=== PATIENT | male | born 1985 | race Caucasian/White ===

== ENCOUNTER 2017-09-08 19:49 | Emergency (ER) | payer BC ==
[2017-09-08 20:23] VITALS: BP 147/101
--- NOTE | 2017-09-08 20:40 | UC ---
Complaint Male HPI - HPI Summary HPI Summary: 32 year old male with complaint. started yesterday with pain behind the testicle in the middle of the night. again today he woke up early in the morning to pee and had pain in the back of the testicle. he does not think there is any swelling or redness. he did have sex last, he did not have pain with sex or with ejaculation. he denies drainage from the penis. it does not hurt when he goes pee, but the pain makes him feel like he has to pee more often. In general, patient does not experience frequent urination, or decrease in flow of urine. no fever. not a pain but more of a discomfort. no pain with sitting. no back pain. no dysuria . over the pat 2 weeks went to PCP and started on crestor and stopped sugar drinks. [ End ] - History of Current Complaint Chief Complaint: UCGU Stated Complaint: FREQUENT URINATION Time Seen by Provider: 09/08/17 20:31 Hx Obtained From: Patient Onset/Duration: Gradual Onset Pain Intensity: 5 - Allergies/Home Medications Allergies/Adverse Reactions: Allergies Allergy/AdvReac Type Severity Reaction Status Date / Time No Known Allergies Allergy Verified 09/08/17 20:24 Home Medications: Home Medications Rosuvastatin Calcium [Crestor] 20 mg PO DAILY 09/08/17 [History Confirmed ] Stomach Acid Pill 1 dose PO DAILY 09/08/17 [History Confirmed 09/08/17] PMH/Surg Hx/FS Hx/Imm Hx - Surgical History Surgical History: Yes Surgery Procedure, Year, and Place: about age 6 repair of undescended testicle - Family History Known Family History: Positive: None - Social History Alcohol Use: Occasionally Substance Use Type: None Smoking Status (MU): Never Smoked Tobacco Review of Systems Genitourinary: Frequency Is Patient Immunocompromised?: No All Other Systems Reviewed And Are Negative: Yes Physical Exam Triage Information Reviewed: Yes Appearance: Well-Appearing, No Pain Distress, Well-Nourished Vital Signs: Initial Vital Signs Temp 99.5 F 09/08/17 20:13 Pulse 95 09/08/17 20:13 Resp 14 09/08/17 20:13 BP 147/101 09/08/17 20:13 Pulse Ox 98 09/08/17 20:13 Vital Signs Reviewed: Yes Eye Exam: Normal ENT Exam: Normal Dental Exam: Normal Neck exam: Normal Neck: Positive: 1 Respiratory Exam: Normal Cardiovascular Exam: Normal Abdominal Exam: Normal Abdomen Description: Negative: CVA Tenderness (R), CVA Tenderness (L), Distended , Guarding Male Genital Exam: Positive: Normal Genitalia, No Hernia, Epididymal Tenderness - minimal left inferior aspect of testicle, Other - pressed on the perineum and non tender. no erythema. no discharge.. Negative: Erythema, Hernia Mass, Inguinal Tenderness, Lesions, Urethral Discharge Musculoskeletal Exam: Normal Neurological Exam: Normal Psychological Exam: Normal Skin Exam: Normal Complaint Male Course/Dx - Course Course Of Treatment: patient pain resolving and much improved tonght that last night. u/a shows mild amount of blood we discussed DDx of that and he has no back pain, no h/o stones, no new sexual partners, could be from sexual intercourse last night. urination changes could be from stopping soda and increasing water intake . we discussed imaging but no sono here. discussed CT but pain not warrant that exam at this time. no fever. minimal pain to palpation of the inferior aspect testicle but Sx improved today so less likely for any acute concerns. give NSAIDs and doxy and he is well aware if Sx worsen / not improved then go to ED for further eval and he is willing to do that. f/u with PCP for this lui and for hematuria. no S/S of torsion. (+) mild cremasteric response. no inguinal pain / lymphadenpathy. deferred rectal. no obvious prostatitis concerns. in essentially no pain during exam and with conversating with him he showed no signs of discfomfort or pain - Differential Dx/Diagnosis Differential Diagnosis/HQI/PQRI: Epididymitis, Urinary Tract Infection Provider Diagnoses: epididymitis Discharge - Sign-Out/Discharge Documenting (check all that apply): Discharge - Discharge Plan Condition: Good Disposition: HOME Prescriptions: Doxycycline Hyclate 100 mg PO BID #20 tablet Ibuprofen TAB* [Motrin TAB* 600 MG] 600 mg PO Q8H PRN #30 tab PRN Reason: Pain Patient Education Materials: Epididymitis (ED) Referrals: No Primary Care Phys,NOPCP [Primary Care Provider] - 1 Week (for recheck urine and follow up ) - Billing Disposition and Condition Condition: GOOD Disposition: HOME
== END 2017-09-08 20:58 | disposition home or self-care (01) ==
LOC: UCCORT 19:49
DX: N45.1 Epididymitis (principal)
CPT/HCPCS: 81003; 99212; G0463

== ENCOUNTER 2019-05-16 11:29 | Emergency (ER) | payer BC ==
[2019-05-16 11:45] VITALS: BP 152/92
[2019-05-16] MEDS ORDERED: Tetan/Diph/Pertus SYR(Tdap)* 0.5 ML SYR(BOOSTRIX) use SYR contains LATEX IM ONE (11:54)
--- NOTE | 2019-05-16 12:19 | UC ---
Hand/Wrist HPI - HPI Summary HPI Summary: 34 yo male lacerated his left thumb cutting up venison today at home last tetanus > 10yrs he is right handed - History Of Current Complaint Chief Complaint: UCLaceration Stated Complaint: LEFT THUMB LACERATION Time Seen by Provider: 05/16/19 11:58 ?: Yes Onset/Duration: Sudden Onset, Lasting Minutes Severity Initially: Moderate Severity Currently: Mild Pain Intensity: 3 Pain Scale Used: 0-10 Numeric Character Of Pain: Sharp Aggravating Factor(s): Other - touch Alleviating Factor(s): Compression Related History: Dominant Hand Right Hands: 1 - 5mm flap laceration - Allergies/Home Medications Allergies/Adverse Reactions: Allergies Allergy/AdvReac Type Severity Reaction Status Date / Time No Known Allergies Allergy Verified 05/16/19 11:41 PMH/Surg Hx/FS Hx/Imm Hx Previously Healthy: Yes - Surgical History Surgical History: Yes Surgery Procedure, Year, and Place: about age 6 repair of undescended testicle - Family History Known Family History: Positive: Hypertension, Non-Contributory - Social History Alcohol Use: Rare Substance Use Type: None Smoking Status (MU): Never Smoked Tobacco - Immunization History Most Recent Tetanus Shot: "I think over a decade ago" Review of Systems All Other Systems Reviewed And Are Negative: Yes Constitutional: Positive: Negative Skin: Positive: Negative Eyes: Positive: Negative ENT: Positive: Negative Respiratory: Positive: Negative Cardiovascular: Positive: Negative Gastrointestinal: Positive: Negative Genitourinary: Positive: Negative Motor: Positive: Negative Neurovascular: Positive: Negative Musculoskeletal: Positive: Negative Neurological: Positive: Negative Psychological: Positive: Negative Physical Exam Triage Information Reviewed: Yes Appearance: Well-Appearing, No Pain Distress, Well-Nourished Vital Signs: Initial Vital Signs Temp 97.7 F 05/16/19 11:40 Pulse 90 05/16/19 11:40 Resp 16 05/16/19 11:40 BP 152/92 05/16/19 11:40 Pulse Ox 98 05/16/19 11:40 Vital Signs Reviewed: Yes Eyes: Positive: Conjunctiva Clear ENT: Positive: Hearing grossly normal. Negative: Nasal congestion, Nasal drainage, Trismus, Muffled voice, Hoarse voice Neck: Positive: Supple Respiratory: Positive: No respiratory distress, No accessory muscle use Cardiovascular: Positive: RRR Musculoskeletal: Positive: ROM Intact, No Edema Neurological: Positive: Alert Psychological Exam: Normal Skin Exam: Other - see image Procedures - Laceration/Wound Repair 1 Location: Other - left thumb Description: Linear Length, Depth and Shape: 5 mm long/1 mm wide/narrow linear flap Irrigated w/ Saline (ccs): 500 Laceration/Wound Explored: clean Closure: Skin Adhesive, SteriStrips Layer Closure?: No Sterile Dressing Applied?: No Hand/Wrist Course/Dx - Differential Dx/Diagnosis Provider Diagnosis: Elevated BP without diagnosis of hypertension, Laceration of left thumb Discharge ED - Sign-Out/Discharge Documenting (check all that apply): Patient Departure All imaging exams completed and their final reports reviewed: No Studies - Discharge Plan Condition: Stable Disposition: HOME Prescriptions: Cephalexin CAP* [Keflex CAP*] 500 mg PO QID #12 cap Patient Education Materials: Skin Adhesive Care (ED) Referrals: [facility] [place] [facility] [Outside] (BP RECHECK IN 2-20 WEEKS) Additional Instructions: call for any questions return for increased pain or swelling - Billing Disposition and Condition Condition: STABLE Disposition: Home
== END 2019-05-16 12:31 | disposition home or self-care (01) ==
LOC: UCCORT 11:29
DX: S61.012A Laceration without foreign body of left thumb without damage to nail, initial encounter (principal); W45.8XXA Other foreign body or object entering through skin, initial encounter; Y92.9 Unspecified place or not applicable
CPT/HCPCS: 12001; 90471; 90715; 99212; G0463